=== PATIENT | female | born 1965 | race Caucasian/White ===

== ENCOUNTER → 2016-08-04 | Outpatient (CLI) | payer OTHER ==
[~2016-08-04] MED LIST: ALBU1AER9 INH; CALC-354 PO; CHOL1000 PO; DICL1GEL28 EXT; LISI-461 PO; MULTTAB5 PO; ZINC1TAB PO
== END | disposition home or self-care (01) ==
LOC: C.PAPS 10:33
PROVIDERS: ATTEND Obstetrics & Gynecology
DX: Z12.4 Encounter for screening for malignant neoplasm of cervix (principal)

== ENCOUNTER → 2016-08-04 | Outpatient (CLI) | payer OTHER ==
[2016-08-08 11:57] LABS: CHLAMYDIA TRACH RNA*** NOT DETECTED (NOT DETECTED); GC (NEIS GONORRHOEAE)RNA** NOT DETECTED (NOT DETECTED)
== END | disposition home or self-care (01) ==
LOC: C.LAB1850 13:24
PROVIDERS: ATTEND Obstetrics & Gynecology
DX: Z11.3 Encounter for screening for infections with a predominantly sexual mode of transmission (principal); Z12.4 Encounter for screening for malignant neoplasm of cervix

== ENCOUNTER → 2016-12-09 | Outpatient (CLI) | payer OTHER ==
--- NOTE | 2016-12-09 15:41 | MAMMOGRAPHY REPORT ---
BILATERAL DIGITAL SCREENING MAMMOGRAM TOMOSYNTHESIS WITH CAD: 12/09/2016 CLINICAL HISTORY: Routine screening. Patient has no complaints. TECHNIQUE: Breast tomosynthesis in addition to standard 2D mammography was performed. Current study was also evaluated with a Computer Aided Detection (CAD) system. COMPARISON: Comparison is made to exams dated: 11/12/2015 mammogram, 06/08/2015 mammogram, 11/07/2014 mammogram, 10/18/2013 mammogram, 09/30/2013 mammogram, and 09/27/2012 mammogram - [facility] nter. BREAST COMPOSITION: There are scattered areas of fibroglandular density in both breasts. FINDINGS: No suspicious masses, calcifications, or areas of architectural distortion are noted in ei ther breast. There has been no significant interval change compared to prior exams. Benign-appearing mass in the left breast at approximately 3:00 is stable compared to prior exams. A linear scar berna er denotes a scar on the right breast from prior benign surgical excision. A few scattered bilateral benign-appearing calcifications are noted. IMPRESSION: ACR BI-RADS CATEGORY 2: BENIGN There is no mammographic evidence of malignancy. A 1 year screening mammogram is recommended. The pa tient will receive written notification of the results. Approximately 10% of breast cancers are not detected with mammography. A negative mammographic report should not delay biopsy if a clinically suggestive mass is present. Lidia Mckeon M.D. /:12/09/2016 14:49:15 Rebar Worker: Yue THACKER(Shante)(Molly)(BD), [facility] letter sent: Normal 1/2 BI-RADS Code: ACR BI-RADS Category 2: Benign
== END | disposition home or self-care (01) ==
LOC: C.MAMM 12:04
PROVIDERS: ATTEND Internal Medicine
DX: Z12.31 Encounter for screening mammogram for malignant neoplasm of breast (principal)

== ENCOUNTER → 2017-03-24 | Outpatient (CLI) | payer OTHER ==
[2017-03-24 16:41] LABS: BASO % 0.4 %; BASO ABS # 0.03 K/uL (0-0.2); COMPLETE YES; EOS % 2.1 %; HEMATOCRIT 40.5 % (37-47); IG% 0.2 %; LYMPH % 23.2 %; LYMPH ABS # 1.99 K/uL (1.2-3.4); MEAN CELL VOLUME 90.6 fL (80-100); MEAN CORPUSCULAR HEMOGLOBIN 30.2 pg (25-34); MEAN CORPUSCULAR HGB CONC 33.3 g/dl (32-36); MEAN PLATELET VOLUME 10.5 fL (7.4-10.4); MONO % 7.4 %; NEUT % 66.7 %; PLATELET COUNT 253 K/uL (130-400); RED BLOOD COUNT 4.47 M/uL (4.2-5.4); WHITE BLOOD COUNT 8.57 K/uL (4.8-10.8)
[2017-03-24 17:11] LABS: ALT/SGPT 18 U/L (12-78); AMYLASE 35 U/L (25-115); AST/SGOT 11 U/L (15-37); BLOOD UREA NITROGEN 15 mg/dl (7-18); BUN/CREATININE RATIO 27.3 (10-20); CARBON DIOXIDE 27 mmol/L (21-32); CHLORIDE 107 mmol/L (98-107); CREATININE 0.56 mg/dl (0.60-1.20); GLUCOSE 81 mg/dl (70-99); POTASSIUM 3.3 mmol/L (3.5-5.1); SODIUM 141 mmol/L (136-145)
[2017-03-24 17:13] LABS: ALB/GLOB RATIO 1.1 (0.9-2); ALKALINE PHOSPHATASE 99 U/L (45-117)
== END | disposition home or self-care (01) ==
LOC: C.LAB 16:11
PROVIDERS: ATTEND Physician Assistant
DX: R10.13 Epigastric pain (principal)

== ENCOUNTER → 2017-06-15 | Outpatient (CLI) | payer OTHER ==
[2017-06-15 11:12] LABS: BLOOD UREA NITROGEN 13 mg/dl (7-18); BUN/CREATININE RATIO 21.4 (10-20); CALCIUM 9.1 mg/dl (8.5-10.1); CARBON DIOXIDE 27 mmol/L (21-32); CHLORIDE 106 mmol/L (98-107); GLUCOSE 140 mg/dl (70-99); POTASSIUM 3.7 mmol/L (3.5-5.1); SODIUM 140 mmol/L (136-145)
== END | disposition home or self-care (01) ==
LOC: C.LABBC 08:54
PROVIDERS: ATTEND Physician Assistant
DX: R60.0 Localized edema (principal)

== ENCOUNTER → 2017-06-23 | Outpatient (CLI) | payer OTHER ==
[2017-06-24 08:02] LABS: HEMOGLOBIN A1C 5.2 % (4.5-5.6)
== END | disposition home or self-care (01) ==
LOC: C.LABBC 10:40
PROVIDERS: ATTEND Physician Assistant
DX: Z86.39 Personal history of other endocrine, nutritional and metabolic disease (principal)

== ENCOUNTER 2018-08-09 06:56 | Inpatient (IN) ==
--- NOTE | 2018-07-11 12:01 | Anesthesiology Consultation ---
Date of Service July 11, 2018 Assessment & Plan (1) Encounter for pre-operative examination: Plan: *PATIENT IS DEAF. YAO CUEVAS, IS HEARING IMPAIRED/FORT [place], BUT CAN SIGN TO INTERPRET. PATIENT CAN READ LIPS IF SPOKEN SLOWLY. Chart Review Chart Review: Acceptable Risk for Surgery and Patient seen in Pre Admission Testing Teaching & Discussion Instructed NPO after midnight before surgery, except medications with 15 cc of water. Medication instructions provided according to the PAT guidelines. History Surgery Operation Date: 07/26/18 09:50 Proposed Procedures p L5-S1 Revision Posterior Lumbar Interbody Fusion - Edgardo Early DO Height/Weight Height: 5 ft 1 in Weight: 94.602 kg Allergies Allergy/AdvReac Type Severity Reaction Status Date / Time No Known Drug Allergies Allergy Unknown NKDA Verified 07/10/18 09:37 Medications Home Medications Medication Instructions Recorded Confirmed Last Taken albuterol sulfate 1 puff INHALATION Q6H PRN 07/10/18 07/10/18 Unknown calcium carbonate [Calcium 500] 500 mg PO QAM 07/10/18 07/10/18 Unknown cholecalciferol (vitamin D3) 1,000 unit PO QAM 07/10/18 07/10/18 Unknown [Vitamin D3] diclofenac sodium [Voltaren] 2 g TOPICAL QID PRN 07/10/18 07/10/18 Unknown hydrocodone-acetaminophen 1 tab PO Q6H PRN 07/10/18 07/10/18 Unknown lisinopril 10 mg PO QAM 07/10/18 07/10/18 Unknown multivitamin 1 cap PO QAM 07/10/18 07/10/18 Unknown turmeric 1 cap PO QAM 07/10/18 07/10/18 Unknown zinc 50 mg PO QAM 07/10/18 07/10/18 Unknown Past Medical History Medical History Asthma uses albuterol inhaler ~ once/month Chronic back pain Deaf Can read lips some if spoken slowly. ASL. Degenerative disc disease Fusion of spine lumbar Hypertension Past Surgical History Surgical History History of bilateral breast reduction surgery History of breast lump removal BENIGN History of cataract extraction with lens replacement B/L History of gastric bypass Was previously treated for diabetes prior to weight loss History of repair of rotator cuff x2 History of surgery HISTORY OF PENNICULECTOMY AND LIPOSUCTION FOLLOWING GASTRIC BYPASS SURGERY Past Anesthesia History No Hx of Anesthesia Complications (other than PONV) and No Family Hx of Anesthesia Complications History of PONV Yes (after 2006 back surgery (longest surgery pt has had)) Motion Sickness Screening History of Motion Sickness: No Social History Smoking Status: Former smoker tobacco type: cigarettes Do You Dip or Chew Tobacco: No Smoking End Date: quit 2010 Hx Alcohol Use: Yes (rare) Hx Substance Use: No substance use type: does not use Exercise / Class Metabolic Activity III < 4 Walking/Shop/Light housework (limited activity 2/2 lumbar radiculopathy pain but denies CP and SOB) Review of Systems Pt denies any recent chest pain, shortness of breath, palpitations, cough, fever or URI. +Common cold ~ 2 weeks ago, resolved. Physical Exam Vital Signs BP: 134/80 P: 74bpm SPO2: 96% RA T: 97.8 F R: 16 ENMT Mouth: + dental restorations (few crowns) and + loose teeth (one slightly loose upper R canine); no chipped teeth Thyromental Distance: > or= 3.5 Finger Breadths (3.5) Mallampati Class: II Neck normal visual inspection; neck extension not limited Respiratory normal respiratory effort Auscultation: lungs clear to auscultation bilaterally Cardiovascular Rate/Rhythm: regular rate and regular rhythm Heart Sounds: no murmur Extremities: no edema Musculoskeletal Wearing supportive lumbar brace. Testing Electrocardiogram Date: 07/11/18 Findings: + NSR @ (72) Chest X-Ray Date: 07/11/18 Findings: + NAD Echocardiogram Date: 07/24/14 EF: 60-65% The left ventricle is normal in size. There is mild concentric left ventricular hypertrophy. Left ventricular systolic function is normal. No regional wall motion abnormalities noted. Laboratory Results 07/11/18 12:51 07/11/18 12:51 Blood Type O Positive 07/11/18 12:51 Antibody Screen NEGATIVE 07/11/18 12:51 PT 10.1 Seconds (9.0-12.0) 07/11/18 12:51 INR 1.0 (0.9-1.1) 07/11/18 12:51 APTT 26.1 Seconds (21.0-31.0) 07/11/18 12:51
--- NOTE | 2018-07-11 12:02 | PAT Medication Instructions ---
Medication Instructions Date of Service July 11, 2018 Home Medications albuterol sulfate 1 puff INHALATION Q6H PRN calcium carbonate [Calcium 500] 500 mg PO QAM cholecalciferol (vitamin D3) 1,000 unit PO QAM diclofenac sodium [Voltaren] 2 g TOPICAL QID PRN lisinopril 10 mg PO QAM multivitamin 1 cap PO QAM turmeric 1 cap PO QAM zinc 50 mg PO QAM STOP taking 2 weeks before surgery turmeric 1 cap PO QAM STOP taking 24 hours before surgery diclofenac sodium [Voltaren] 2 g TOPICAL QID PRN DO NOT take the morning of surgery calcium carbonate [Calcium 500] 500 mg PO QAM cholecalciferol (vitamin D3) 1,000 unit PO QAM lisinopril 10 mg PO QAM multivitamin 1 cap PO QAM zinc 50 mg PO QAM Take morning of surgery OTHERWISE NOTHING TO EAT OR DRINK AFTER MIDNIGHT: albuterol sulfate 1 puff INHALATION Q6H PRN (if needed) Take evening before surgery albuterol sulfate 1 puff INHALATION Q6H PRN (if needed) Other Notes If you have any questions please call us at [phone] or [phone] or [phone] or [phone]
[2018-07-11 13:05] LABS: Basophils # (auto) 0.02 K/uL (0-0.2); Basophils % (auto) 0.3 %; Eosinophils # (auto) 0.08 K/uL (0-0.5); Eosinophils % (auto) 1.2 %; Hematocrit (blood only) 42.7 % (37-47); Hemoglobin 13.9 g/dL (12.0-16.0); Immature Granulocytes # (auto) 0.02 K/uL (0.00-0.02); Immature Granulocytes % (auto) 0.3 %; Lymphocytes # (auto) 1.43 K/uL (1.2-3.4); Lymphocytes % (auto) 21.9 %; Mean Corpuscular Hgb Conc 32.6 g/dL (32-36); Mean Corpuscular Volume 94.7 fL (80-100); Mean Platelet Volume 10.3 fL (7.4-10.4); Monocytes # (auto) 0.51 K/uL (0.11-0.59); Monocytes % (auto) 7.8 %; Neutrophils # (auto) 4.48 K/uL (1.4-6.5); Neutrophils % (auto) 68.5 %; Platelet Count 253 K/uL (130-400); RDW Coefficient of Variation 15.3 % (11.5-14.5); RDW Standard Deviation 52.8 fL (36.4-46.3); Red Blood Count 4.51 M/uL (4.2-5.4); White Blood Count 6.54 K/uL (4.8-10.8)
[2018-07-11 13:14] LABS: Partial Thromboplastin Time 26.1 Seconds (21.0-31.0); Prothrombin Time 10.1 Seconds (9.0-12.0)
--- NOTE | 2018-07-11 13:19 | XRay Report ---
XR chest Pre-admission PA/Lat CLINICAL HISTORY: Preoperative chest COMPARISON STUDY: 07/24/2014 FINDINGS: The heart is mildly enlarged. There is no failure. There is no focal pulmonary consolidatio n. There are no pleural effusions.[ IMPRESSION: No active disease in the chest. Electronically signed by: Mejia Greer M.D. 07/11/2018 1:18 PM
[2018-07-11 14:56] LABS: BUN Creatinine Ratio 21.4 (10-20); Calcium 9.1 mg/dl (8.5-10.1); Creatinine Clr Calc Pharmacy 105.6 ml/min; Est GFR (African American) 117.3; Est GFR (Non-African American) 101.2; Potassium 3.9 mmol/L (3.5-5.1)
--- NOTE | 2018-07-25 14:18 | History and Physical Report ---
DATE OF ADMISSION: 07/26/2018 CHIEF COMPLAINT: Lower back pain, lower extremity difficulties, paresthesias, numbness and tingling and difficulty with walking. HISTORY OF PRESENT ILLNESS: April is 52 years of age. She communicates poorly because of being deaf. She does have mechanical back pain consistent with a spondylolisthesis, prior surgery and a prior fusion that has gone on to a nonunion and actually fracture of the spinal implants, particularly the pedicle screws in the sacral vertebrae. PAST MEDICAL HISTORY: Positive for obesity. No cancer, hypertension, COPD, diabetes. SURGICAL INTERVENTION: A prior posterior lumbar fusion L5-S1. SOCIAL HISTORY: She is single. No alcohol, no tobacco. REVIEW OF SYSTEMS: Positive for migraines. Ear, nose and throat negative. Admits to occasional swelling in hands and feet, does have some asthma and there is no nausea, no vomiting. She admits to numbness, tingling, associated weakness to the extremities. Pain is almost consistent all the time. Nothing has helped her. PHYSICAL EXAMINATION: Visual analog scale of 0 to 10, she rates her pain a 10. GENERAL: She is 52. She is 5 feet 5 inches. She is 195 pounds. She is in distress. She cannot get comfortable. HEENT: Normal. HEART: Normal S1, S2, no S3. LUNGS: Clear to auscultation. No rales, rhonchi, wheezing. ABDOMEN: Soft, nontender. NEUROLOGIC: Demonstrates some decreased strength to plantarflexion, decreased dorsiflexion. She has pain with percussion. She has pain with range of motion. She has slight sensory deficit. Blood pressure 130/80, pulse 80, respirations 16. Images demonstrate a spondylolisthesis, lumbar spine, grade 1 along with a broken screw in the sacral vertebrae. PLAN: Includes revision lumbar spine, L5-S1.
--- NOTE | 2018-08-08 14:31 | History and Physical Report ---
DATE OF ADMISSION: 08/09/2018 CHIEF COMPLAINT AND HISTORY OF PRESENT ILLNESS: Back pain, incapacitating lower extremity difficulty. She has a breakdown of her spinal implants at L5-S1. She is for revision surgery, lumbar spine. PAST MEDICAL HISTORY: Negative for COPD, diabetes, carcinoma. She is positive for HIV. PAST SURGICAL HISTORY: Includes lumbar spine surgery. She is deaf and communicates poorly. SOCIAL HISTORY: She is . No alcohol, tobacco. REVIEW OF SYSTEMS: Positive for headaches. Ear, nose and throat negative. She admits to some swelling hands and feet, asthma, wheezing. She has pain with urination, sleep issues, numbness, tingling, weakness. Denies any chest pain, palpitations. Denies nausea, vomiting or bowel and bladder incontinence. MEDICATIONS: Include analgesics. Duration of symptoms approximately 3 months, painful all the time, nothing improves. She did have prior surgery by a local physician several years ago. Visual analog scale 0 to 10, she rates her pain a 10. PHYSICAL EXAMINATION: GENERAL: She is 53. She is 5 feet 5 inches. She is 200 pounds. VITAL SIGNS: Blood pressure 130/80, pulse 80, respirations 16. ABDOMEN: Soft, nontender, bowel sounds present. CARDIAC: Normal S1, S2. No S3. LUNGS: Clear to auscultation. No rales, rhonchi, wheezing. NEUROLOGIC: Intact. She has pain with straight leg raising. Some weakness of dorsiflexion, some weakness of plantarflexion. Significant gait abnormality. IMAGING DATA: Images demonstrate a spondylolisthesis L5-S1, breakage of hardware L5-S1. PLAN: Includes revision surgery, posterior lumbar interbody fusion L5-S1.
[~2018-08-09 06:56] MED LIST changes: -ALBU1AER9 INH; +BACITRACIN INJ 50,000 UNIT VIAL ONE; +BUPIVACAINE/EPINEPHRINE 0.5% MPF 1:200,000 30 ML VIAL ONE; -CALC-354 PO; +CEFAZOLIN 2000MG 2,000 MG/15 ML SYR IV SCH; -CHOL1000 PO; -DICL1GEL28 EXT; +GELATIN SPONGE SZ 100 ONE; -LISI-461 PO; +LR 15ML/HR IV SCH; -MULTTAB5 PO; +SODIUM CHLORIDE 0.9% 1,000 ML IV SCH; +SODIUM CHLORIDE 0.9% 1000ML IV SCH; +THROMBIN FOR SOLN 20000 UNIT KIT ONE; +VANCOMYCIN HCL 1000MG/20ML VIAL ONE; -ZINC1TAB PO
[2018-08-09] MEDS ORDERED: MIDAZOLAM HCL 1 MG/ML 2ML VIAL ONE (07:08)
[2018-08-09] MEDS ORDERED: fentaNYL citrate 100 MCG/2 ML VIAL ONE ×2 (07:08→08:57)
[2018-08-09] MEDS ORDERED: LIDOCAINE HCL 2% 2 ML VIAL/AMP(20MG/ML) INFIL ONE (07:08)
[2018-08-09] MEDS ORDERED: DEXAMETHASONE SOD INJ 4 MG/ML VIAL ONE (07:08)
[2018-08-09] MEDS ORDERED: ROCURONIUM BROMIDE 10 MG/ML 5 ML VIAL ONE ×5 (07:08→10:27)
[2018-08-09] MEDS ORDERED: PROPOFOL IV EMULSION 10 MG/ML 20 ML VIAL IV ONE (07:08)
[2018-08-09] MEDS ORDERED: ONDANSETRON INJ 2 MG/ML 2 ML VIAL ONE ×2 (07:08→11:28)
--- NOTE | 2018-08-09 08:10 | History & Physical Bridge Note ---
Date of Service August 09, 2018 History & Physical Bridge Note I have examined the patient, reviewed the History & Physical and in the interval since the performance of the History & Physical I have noted the following changes of clinical significance: no changes noted
[2018-08-09] MEDS ORDERED: HYDROmorphone INJ 2 MG/ML SYR/VIAL ONE (09:12)
[2018-08-09] MEDS ORDERED: FLOSEAL HEMOSTATIC MATRIX 10ML TOP ONE (09:46)
[2018-08-09] MEDS ORDERED: KETAMINE HCL INJ 50 MG/ML 10 ML VIAL ONE (09:48)
[2018-08-09] MEDS ORDERED: ESMOLOL HCL INJ 10 MG/ML 10ML VIAL IV ONE (09:57)
[2018-08-09] MEDS ORDERED: NALOXONE HCL 0.4 MG/1 ML VIAL/CARP IV PRN ×2 (10:18→13:25)
[2018-08-09] MEDS ORDERED: ePHEDrine sulfate 50 MG/ML AMP IV PRN (10:18)
[2018-08-09] MEDS ORDERED: ONDANSETRON INJ 2 MG/ML 2 ML VIAL IV PRN ×2 (10:18→13:25)
[2018-08-09] MEDS ORDERED: LABETALOL HCL IV 5 MG/ML 20ML IV PRN (10:18)
[2018-08-09] MEDS ORDERED: ATROPINE SULFATE 0.1 MG/ML 10ML SYR IV PRN (10:18)
[2018-08-09] MEDS ORDERED: FLUMAZENIL 0.1 MG/1 ML 10 ML VIAL IV PRN (10:18)
[2018-08-09] MEDS ORDERED: PROMETHAZINE HCL 12.5 MG in SODIUM CHLORIDE 0.9% 50 ML IV PRN ×2 (10:18→13:25)
[2018-08-09] MEDS ORDERED: GELATIN SPONGE SZ 100 ONE (10:20)
[2018-08-09] MEDS ORDERED: NEOSTIGMINE METHYLSULFATE 5 MG/5 ML SYR ONE (10:28)
[2018-08-09] MEDS ORDERED: GLYCOPYRROLATE 0.2 MG/ML VIAL ONE (10:28)
--- NOTE | 2018-08-09 12:00 | Post Operative Brief Note ---
Immediate Post Op Note v1 Date of Surgery August 09, 2018 Pre & Post Diagnosis Operation Date: 08/09/18 08:00 Pre-Op Diagnosis: Spondylolisthesis L5-S1, breakage of hardware L5-S1 Post-Op Diagnosis: Spondylolisthesis L5-S1, breakage of hardware L5-S1 Procedure Operation Date: 08/09/18 08:00 Actual Procedures p L5-S1 Revision Posterior Lumbar Interbody Fusion; wiht extended decompression & fusion at L4-L5(Not Applicable) - Edgardo Early DO Surgeon Edgardo Early DO Maintenance Repairer tresa Estimated Blood Loss 300 Findings Consistent with Post-Op Diagnosis Drains Alvarado Catheter and Hemovac Drain
--- NOTE | 2018-08-09 12:06 | Fluoroscopy Report ---
FL spine 1V any level HISTORY: Laminectomy. FLUOROSCOPY TIME: 20 seconds. FINDINGS: Intraoperative fluoroscopy was provided for the lumbar spine. 2 fluoroscopic spot images we re obtained. IMPRESSION: Fluoroscopy provided for a lumbar laminectomy and fusion from L4 through S1. The above report was generated using voice recognition software. It may contain grammatical, syntax or spelling errors. Electronically signed by: Tony Calvin M.D. 08/09/2018 12:04 PM
[2018-08-09] MEDS: HYDROmorphone INJ 1 MG/ML SYRINGE IV PRN ×4 (12:18→17:17)
--- NOTE | 2018-08-09 12:49 | Anesthesiology Progress Note ---
Date of Service August 09, 2018 Anesthesia Post Procedure Vital Signs Vital Signs: Temp Pulse Pulse Pulse Resp BP BP 08/09/18 12:32 72 18 149/101 H 08/09/18 12:30 79 12 08/09/18 12:26 73 15 144/95 H 08/09/18 12:25 73 17 08/09/18 12:21 91 H 22 160/94 H 08/09/18 12:20 79 15 08/09/18 12:17 67 14 181/93 H 08/09/18 12:15 73 17 08/09/18 12:11 66 14 163/96 H 08/09/18 12:10 70 19 08/09/18 12:08 69 15 165/96 H 08/09/18 12:06 36.4 C L 67 66 14 179/101 H 179/101 H 08/09/18 07:52 37.2 C 93 H 20 136/72 Pulse Ox 08/09/18 12:32 100 08/09/18 12:30 08/09/18 12:26 100 08/09/18 12:25 99 08/09/18 12:21 100 08/09/18 12:20 100 08/09/18 12:17 100 08/09/18 12:15 100 08/09/18 12:11 100 08/09/18 12:10 100 08/09/18 12:08 100 08/09/18 12:06 100 08/09/18 07:52 96 Pain Intensity Back: Pain Intensity: 10 Notes Mental Status: alert / awake / arousable Patient Amnestic to Procedure: Yes Nausea / Vomiting: adequately controlled Pain: adequately controlled Airway Patency, RR, SpO2: stable & adequate BP & HR: stable & adequate Hydration State: stable & adequate Anesthetic Complications: no major complications apparent
[2018-08-09] MEDS ORDERED: METOCLOPRAMIDE HCL INJ 5 MG/ML 2 ML VIAL IV PRN (13:25)
[2018-08-09] MEDS ORDERED: HYDROmorphone INJ 0.5 MG/0.5 ML SYR IV PRN (13:25)
[2018-08-09] MEDS ORDERED: ACETAMINOPHEN 500 MG TAB PO PRN (13:25)
[2018-08-09] MEDS ORDERED: BISACODYL 10 MG SUPP PR PRN (13:25)
[2018-08-09] MEDS ORDERED: LORazepam 0.5 MG TAB PO PRN (13:25)
[2018-08-09] MEDS ORDERED: HYDROCODONE/ACETAMOPHEN 5/325MG TAB PO PRN (13:25)
[2018-08-09] MEDS ORDERED: MAGNESIUM HYDROXIDE SUSP 30 ML UDC PO PRN (13:25)
[2018-08-09] MEDS ORDERED: ALBUTEROL HFA 8 GM INHALER INH PRN (13:25)
[2018-08-09] MEDS: OXYCODONE HCL IR 5 MG TAB (IMMEDIATE RELEASE) PO PRN (14:38)
[2018-08-09] MEDS: SODIUM CHLORIDE 0.9% 1000ML 1,000 ML IV SCH (16:17)
[2018-08-09] MEDS: KETOROLAC TROMETHAMINE 15 MG/ML VIAL IV SCH ×2 (16:17→21:07)
[2018-08-09] MEDS: CEFAZOLIN 2000MG 2,000 MG/15 ML SYR IV SCH (17:16)
[2018-08-09] MEDS: DOCUSATE SODIUM/SENNA 50/8.6MG TAB PO SCH (21:03)
[2018-08-10] MEDS: CEFAZOLIN 2000MG 2,000 MG/15 ML SYR IV SCH (02:09)
[2018-08-10] MEDS: OXYCODONE HCL IR 5 MG TAB (IMMEDIATE RELEASE) PO PRN ×4 (02:15→20:54)
[2018-08-10] MEDS: POLYETHYLENE (MIRALAX) 17 GM PACK PO SCH ×4 (04:45→23:51)
[2018-08-10] MEDS: KETOROLAC TROMETHAMINE 15 MG/ML VIAL IV SCH ×2 (04:45→11:28)
[2018-08-10] MEDS: SODIUM CHLORIDE 0.9% 1000ML 1,000 ML IV SCH (04:53)
[2018-08-10 06:59] LABS: Basophils # (auto) 0.02 K/uL (0-0.2); Basophils % (auto) 0.2 %; Eosinophils # (auto) 0.12 K/uL (0-0.5); Eosinophils % (auto) 1.1 %; Hematocrit (blood only) 34.1 % (37-47); Hemoglobin 11.1 g/dL (12.0-16.0); Immature Granulocytes # (auto) 0.04 K/uL (0.00-0.02); Immature Granulocytes % (auto) 0.4 %; Lymphocytes % (auto) 19.9 %; Mean Corpuscular Hgb Conc 32.6 g/dL (32-36); Mean Corpuscular Volume 95.8 fL (80-100); Mean Platelet Volume 10.5 fL (7.4-10.4); Monocytes # (auto) 1.05 K/uL (0.11-0.59); Monocytes % (auto) 9.5 %; Neutrophils # (auto) 7.63 K/uL (1.4-6.5); Neutrophils % (auto) 68.9 %; Platelet Count 216 K/uL (130-400); RDW Coefficient of Variation 14.4 % (11.5-14.5); RDW Standard Deviation 50.8 fL (36.4-46.3); Red Blood Count 3.56 M/uL (4.2-5.4); White Blood Count 11.06 K/uL (4.8-10.8)
[2018-08-10] MEDS: HYDROmorphone INJ 1 MG/ML SYRINGE IV PRN (07:56)
--- NOTE | 2018-08-10 07:57 | Operative Report ---
DATE OF OPERATION: 08/09/2018 SURGEON: Edgardo Early DO TALENT MANAGER: MANUELITO Diane COMPLICATIONS: Zero. PROCEDURE: Revision decompression and fusion L5-S1; instrumentation and fusion L4, L5, S1; laminectomy L4; foraminotomy; partial facetectomy; posterior lateral fusion L4, L5, S1. 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 DESCRIPTION OF PROCEDURE: The patient was taken to the operating room and general intubated anesthetic was provided to the patient, placed prone, prepped and draped sterile. We made a skin incision and fascial incision. We had to use revision strategies. We did dig out the bone graft over the prior instrumentation. We had to use various types of techniques. I used rongeurs. I was able to finally find the crosslink, we removed that. We removed the caps off the screws. We removed the pedicle screws. The caps or the tulip portion of the pedicle screws was completely fractured off bilaterally of the sacral pedicles. We then continued our decompression up. She had significant stenosis, actually at L5-S1 residual and stenosis up at L4-L5. We carefully and meticulously dissected free, completing foraminotomies at all levels. I was pleased with the decompression. We then instrumented the spine, safely getting pedicle screws into L4, L5 and S1. I was able to move around the old pedicle screw and the sacrum region without removing it, which would have been impossible, and find a different entry point. I was pleased with the appearance of the S1 pedicle screw location, geometry, and depth. We completed the instrumentation. We locked up the longitudinal angela construct. We then bone grafted out of the transverse processes from L4, L5 and sacrum with allograft. It was allograft in a demineralized bone matrix. There was no autograft used on the procedure. We irrigated with approximately 500-600 mL of fluid. We closed the skin, the fascia with #1 Vicryl suture over vancomycin powder over a Hemovac drain, 2-0 in the subcuticular layer, 3-0 nylon on the skin, sterile dressings applied. The patient returned supine, extubated to PACU stable. No apparent intraoperative complications. Sponge and needle count correct. Comorbidities included morbid obesity. I attest to the content of the Intraoperative Record and any orders documented therein. Any exception s are noted below.
[2018-08-10] MEDS ORDERED: TURMERIC PO SCH (09:00)
[2018-08-10] MEDS: ZINC SULFATE 220 MG CAPSULE PO SCH (09:03)
[2018-08-10] MEDS: MULTIVITAMIN TAB PO SCH (09:03)
[2018-08-10] MEDS: CHOLECALCIFEROL 1,000 UNITS TAB PO SCH (09:03)
[2018-08-10] MEDS: LISINOPRIL 10 MG TAB PO SCH (09:03)
[2018-08-10] MEDS: CALCIUM CARBONATE 1250MG TAB PO SCH (09:03)
--- NOTE | 2018-08-10 09:43 | Anesthesiology Progress Note ---
Date of Service August 10, 2018 Anesthesia Post Procedure Vital Signs Vital Signs: Temp Pulse Pulse Pulse Resp BP BP 08/10/18 07:00 36.8 C 91 H 16 102/73 08/10/18 04:43 37.0 C 82 14 110/74 08/09/18 22:59 37.0 C 83 14 92/59 L 08/09/18 20:16 36.8 C 102 H 18 102/64 08/09/18 16:29 36.8 C 102 H 18 118/76 08/09/18 15:27 37.0 C 83 18 103/63 08/09/18 14:15 77 18 130/84 08/09/18 13:50 87 83 97 H 131/83 08/09/18 13:10 36.2 C L 81 12 08/09/18 13:06 77 15 121/98 08/09/18 13:05 78 15 08/09/18 13:01 80 13 148/84 H 08/09/18 13:00 76 14 08/09/18 12:56 76 12 124/77 08/09/18 12:55 78 16 08/09/18 12:51 77 17 143/83 H 08/09/18 12:50 82 10 L 08/09/18 12:46 77 10 L 150/74 H 08/09/18 12:45 79 13 08/09/18 12:41 74 14 141/96 H 08/09/18 12:40 72 13 08/09/18 12:37 79 23 144/86 H 08/09/18 12:35 75 14 08/09/18 12:32 72 18 149/101 H 08/09/18 12:30 79 12 08/09/18 12:26 73 15 144/95 H 08/09/18 12:25 73 17 08/09/18 12:21 91 H 22 160/94 H 08/09/18 12:20 79 15 08/09/18 12:17 67 14 181/93 H 08/09/18 12:15 73 17 08/09/18 12:11 66 14 163/96 H 08/09/18 12:10 70 19 08/09/18 12:08 69 15 165/96 H 08/09/18 12:06 36.4 C L 67 66 14 179/101 H 179/101 H Pulse Ox 08/10/18 07:00 97 08/10/18 04:43 97 08/09/18 22:59 98 08/09/18 20:16 96 08/09/18 16:29 96 08/09/18 15:27 97 08/09/18 14:15 99 08/09/18 13:50 08/09/18 13:10 100 08/09/18 13:06 100 08/09/18 13:05 100 08/09/18 13:01 100 08/09/18 13:00 100 08/09/18 12:56 100 08/09/18 12:55 100 08/09/18 12:51 100 08/09/18 12:50 99 08/09/18 12:46 100 08/09/18 12:45 99 08/09/18 12:41 99 08/09/18 12:40 99 08/09/18 12:37 100 08/09/18 12:35 100 08/09/18 12:32 100 08/09/18 12:30 08/09/18 12:26 100 08/09/18 12:25 99 08/09/18 12:21 100 08/09/18 12:20 100 08/09/18 12:17 100 08/09/18 12:15 100 08/09/18 12:11 100 08/09/18 12:10 100 08/09/18 12:08 100 08/09/18 12:06 100 Pain Intensity Back: Pain Intensity: 9 Notes Mental Status: alert / awake / arousable Patient Amnestic to Procedure: Yes Nausea / Vomiting: adequately controlled Pain: see Notes below (pt complains that narcotics are not working well; ) Airway Patency, RR, SpO2: stable & adequate BP & HR: stable & adequate Hydration State: stable & adequate Anesthetic Complications: no major complications apparent
[2018-08-10] MEDS: DOCUSATE SODIUM/SENNA 50/8.6MG TAB PO SCH (20:54)
[2018-08-11] MEDS: OXYCODONE HCL IR 5 MG TAB (IMMEDIATE RELEASE) PO PRN ×2 (04:05→14:19)
[2018-08-11] MEDS: POLYETHYLENE (MIRALAX) 17 GM PACK PO SCH ×2 (06:30→13:16)
[2018-08-11] MEDS: ZINC SULFATE 220 MG CAPSULE PO SCH (09:07)
[2018-08-11] MEDS: CALCIUM CARBONATE 1250MG TAB PO SCH (09:08)
[2018-08-11] MEDS: MULTIVITAMIN TAB PO SCH (09:08)
[2018-08-11] MEDS: LISINOPRIL 10 MG TAB PO SCH (09:08)
[2018-08-11] MEDS: CHOLECALCIFEROL 1,000 UNITS TAB PO SCH (09:08)
--- NOTE | 2018-08-11 10:21 | Discharge Summary ---
She is alert, oriented, ambulatory, taking p.o. Doing well. Pain controlled. She had a fairly elaborate reconstructive spinal surgery, is doing well day 2 postop with no issues. She will be discharged home in improved stable condition. She has a walker for support. She has prescription on the chart. She has medications at home and she has a followup appointment with me in about 2 weeks.
== END 2018-08-11 14:40 | disposition home or self-care (01) | DRG 460 ==
LOC: ASU 06:56 → 3E 12:22